=== PATIENT | female | born 1970 ===

== ENCOUNTER 2023-02-20 20:36 | Emergency (ER) | payer BC ==
[~2023-02-20] VITALS: Ht 160 cm; Wt 93.2 kg
[~2023-02-20 20:36] MED LIST: ONDA4TAB6 PO
[2023-02-20 21:05] VITALS: BP 134/65
== END 2023-02-20 22:18 | disposition left against medical advice (07) ==
LOC: ER 20:38
DX: K14.0 Glossitis (principal); Z53.21 Procedure and treatment not carried out due to patient leaving prior to being seen by health care provider
CPT/HCPCS: 99281